=== PATIENT | female | born 1995 | race Caucasian/White ===

== ENCOUNTER → 2017-12-07 | Outpatient (CLI) | payer OTHER ==
[~2017-12-07] MED LIST: IBUP800 PO; Micronor; OXYACE5T PO; Verotin-Gr Cap1 EACH PO
[2017-12-07 18:17] LABS: BASOPHILS ABSOLUTE AUTO 0.04 K/mm3 (0.00-0.23); BASOPHILS PERCENT AUTO 0 % (0-2); EOSINOPHILS PERCENT AUTO 3 % (0-6); Hematocrit 40.9 % (33.0-51.0); Hemoglobin 12.4 g/dL (11.5-16.0); IMMATURE GRAN ABSOLUTE AUTO 0.02 K/mm3 (0.00-0.10); IMMATURE GRAN PERCENT AUTO 0 % (0-1); LYMPHOCYTES ABSOLUTE AUTO 3.02 K/mm3 (0.84-5.20); LYMPHOCYTES PERCENT AUTO 27 % (21-46); MONOCYTES ABSOLUTE AUTO 0.55 K/mm3 (0.16-1.47); MONOCYTES PERCENT AUTO 5 % (4-13); Mean Corpuscular HGB 25.2 pg (26.0-34.0); Mean Corpuscular HGB Conc 30.3 g/dL (31.5-36.5); Mean Corpuscular Volume 83 fL (80-100); Mean Platelet Volume 11.1 fL (9.1-12.4); NEUTROPHILS ABSOLUTE AUTO 7.16 K/mm3 (1.96-9.15); NEUTROPHILS PERCENT AUTO 65 % (41-73); Platelet Count 367 K/mm3 (150-400); RDW Coefficient Variation 15.3 % (11.7-14.2); RDW Standard Deviation 45.8 fL (35.1-46.3); Red Blood Cell Count 4.92 M/mm3 (3.80-5.20); White Blood Cell Count 11.09 K/mm3 (4.00-11.30)
[2017-12-07 19:11] LABS: Alanine Aminotransfer (ALT/SGP 20 U/L (12-78); Albumin, Blood 3.2 g/dL (3.4-5.0); Albumin/Globulin Ratio 0.8 (0.8-1.8); Alk Phos 79 U/L (50-136); Anion Gap 10 mmol/L (6-16); Aspartate Aminotrans (AST/SGOT 14 U/L (12-37); Bilirubin, Total 0.2 mg/dL (0.1-1.0); Blood Urea Nitrogen 13 mg/dL (8-24); CO2, Blood 22 mmol/L (21-32); Calcium, Blood 8.1 mg/dL (8.5-10.1); Chloride, Blood 109 mmol/L (98-108); Creatinine, Blood 0.81 mg/dL (0.40-1.00); Glomerular Filtration Rate >60 (60-); Glucose, Blood 89 mg/dL (70-99); Potassium, Blood 4.1 mmol/L (3.5-5.5); Sodium, Blood 141 mmol/L (136-145); Total Protein, Blood 7.2 g/dL (6.4-8.2)
== END | disposition home or self-care (01) ==
LOC: LAB 10:05
PROVIDERS: Nurse Practitioner Family
DX: R53.83 Other fatigue (principal); E55.9 Vitamin D deficiency, unspecified; Z86.2 Personal history of diseases of the blood and blood-forming organs and certain disorders involving the immune mechanism
CPT/HCPCS: 80053; 82306; 84443; 85025

== ENCOUNTER → 2018-10-12 | Outpatient (CLI) | payer OTHER | END | disposition home or self-care (01) | LOC: LAB 12:42 → LAB SHORT 12:42 | PROVIDERS: Obstetrics & Gynecology | DX: Z12.4 Encounter for screening for malignant neoplasm of cervix (principal) | CPT/HCPCS: G0123 ==

== ENCOUNTER 2019-03-30 09:29 | Emergency (ER) | payer OTHER ==
[~2019-03-30] VITALS: Ht 157.5 cm; Wt 99.8 kg
[2019-03-30] MEDS ORDERED: PROC5 PO (11:16)
[2019-03-30] MEDS ORDERED: Esgic Tablet1 EACH PO (11:16)
== END 2019-03-30 11:35 | disposition home or self-care (01) ==
LOC: ER 09:29
DX: R51 Headache (principal); Z87.891 Personal history of nicotine dependence
CPT/HCPCS: 36415; 96361; 96374; 99283-25; J0780; J1100; J1200; J1885; J7120

== ENCOUNTER 2019-06-28 23:30 | Emergency (ER) | payer OTHER ==
[~2019-06-28] VITALS: Ht 157.5 cm; Wt 95.2 kg
[~2019-06-28 23:30] MED LIST changes: +Esgic Tablet1 EACH PO; +PROC5 PO
== END 2019-06-29 02:20 | disposition home or self-care (01) ==
LOC: ER 23:30
DX: R07.89 Other chest pain (principal); Z87.891 Personal history of nicotine dependence
CPT/HCPCS: 93005; 93010; 96372; 99284-25; J1885

== ENCOUNTER 2019-09-03 07:14 | Emergency (ER) | payer OTHER ==
[~2019-09-03] VITALS: Ht 157.5 cm; Wt 95.2 kg
[2019-09-03 07:47] LABS: Source, Urine Clean Catch
[2019-09-03 07:57] LABS: Appearance, Urine Clear (Clear); Bilirubin, Urine Neg (Neg); Blood, Urine Neg (Neg); Color, Urine Yellow (P-Yellow); Glucose Qualitative, Urine Neg (Neg); Ketones, Urine Neg (Neg); Leukocyte Esterase, Urine Neg (Neg); Nitrite, Urine Neg (Neg); Protein, Urine Neg (Neg); Specific Gravity, Urine 1.015 (1.003-1.022); Urobilinogen, Urine NORM (Normal)
[2019-09-03 08:00] LABS: BASOPHILS ABSOLUTE AUTO 0.01 K/mm3 (0.00-0.23); BASOPHILS PERCENT AUTO 0 % (0-2); EOSINOPHILS ABSOLUTE AUTO 0.23 K/mm3 (0.00-0.68); EOSINOPHILS PERCENT AUTO 2 % (0-6); Hematocrit 43.8 % (33.0-51.0); Hemoglobin 13.7 g/dL (11.5-16.0); IMMATURE GRAN ABSOLUTE AUTO 0.02 K/mm3 (0.00-0.10); IMMATURE GRAN PERCENT AUTO 0 % (0-1); LYMPHOCYTES ABSOLUTE AUTO 2.99 K/mm3 (0.84-5.20); LYMPHOCYTES PERCENT AUTO 31 % (21-46); MONOCYTES ABSOLUTE AUTO 0.53 K/mm3 (0.16-1.47); MONOCYTES PERCENT AUTO 6 % (4-13); Mean Corpuscular HGB 26.5 pg (26.0-34.0); Mean Corpuscular HGB Conc 31.3 g/dL (31.5-36.5); Mean Corpuscular Volume 85 fL (80-100); Mean Platelet Volume 10.3 fL (9.1-12.4); NEUTROPHILS ABSOLUTE AUTO 5.78 K/mm3 (1.96-9.15); NEUTROPHILS PERCENT AUTO 61 % (41-73); Platelet Count 332 K/mm3 (150-400); RDW Coefficient Variation 15.4 % (11.7-14.2); RDW Standard Deviation 47.2 fL (35.1-46.3); Red Blood Cell Count 5.17 M/mm3 (3.80-5.20); White Blood Cell Count 9.56 K/mm3 (4.00-11.30)
[2019-09-03 08:13] LABS: Alanine Aminotransfer (ALT/SGP 20 U/L (12-78); Albumin, Blood 3.4 g/dL (3.4-5.0); Albumin/Globulin Ratio 0.9 (0.8-1.8); Alk Phos 99 U/L (50-136); Anion Gap 7 mmol/L (6-16); Aspartate Aminotrans (AST/SGOT 8 U/L (12-37); Bilirubin, Total 0.3 mg/dL (0.1-1.0); Blood Urea Nitrogen 11 mg/dL (8-24); Bun/Creatinine Ratio 14.8 (12.0-20.0); CO2, Blood 26 mmol/L (21-32); Calcium, Blood 8.9 mg/dL (8.5-10.1); Chloride, Blood 107 mmol/L (98-108); Creatinine, Blood 0.74 mg/dL (0.40-1.00); Globulin, Blood 3.9 g/dL (2.2-4.0); Glomerular Filtration Rate >60 (60-); Glucose, Blood 95 mg/dL (70-99); Potassium, Blood 3.7 mmol/L (3.5-5.5); Sodium, Blood 140 mmol/L (136-145); Total Protein, Blood 7.3 g/dL (6.4-8.2)
[2019-09-03] MEDS ORDERED: Prilosec Otc20 MG PO (09:45)
[2019-09-03] MEDS ORDERED: ONDA4ODT MM (09:45)
== END 2019-09-03 10:11 | disposition home or self-care (01) ==
LOC: ER 07:14
PROVIDERS: Emergency Medicine
DX: K44.9 Diaphragmatic hernia without obstruction or gangrene (principal); Z87.891 Personal history of nicotine dependence
CPT/HCPCS: 36415; 74176; 80053; 81003; 81025; 83690; 85025; 96361; 96374; 99284-25; J2405; J7030

== ENCOUNTER → 2020-04-15 | Outpatient (CLI) | payer OTHER ==
[~2020-04-15] MED LIST changes: +ONDA4ODT MM; +Prilosec Otc20 MG PO
[2020-04-17 08:09] LABS: HBSAG SCREEN Negative (Negative); HIV SCREEN 4TH GENERATION WRFX Non Reactive (Non Reactive)
[2020-04-17 09:09] LABS: HCV ANTIBODY <0.1 (0.0-0.9)
== END | disposition home or self-care (01) ==
LOC: LAB SHORT 12:58 → LAB EV 12:58
PROVIDERS: General Practice
DX: Z20.9 Contact with and (suspected) exposure to unspecified communicable disease (principal)
CPT/HCPCS: 84460; 86317; 86803; 87340; 87389

== ENCOUNTER 2020-08-19 21:38 | Emergency (ER) | payer OTHER ==
[~2020-08-19] VITALS: Ht 157.5 cm; Wt 96.2 kg
[2020-08-19 22:25] LABS: Source, Urine Clean Catch
[2020-08-19 22:30] LABS: Bilirubin, Urine Neg (Neg); Blood, Urine Neg (Neg); Glucose Qualitative, Urine Neg (Neg); Ketones, Urine 1+ (Neg); Leukocyte Esterase, Urine 2+ (Neg); Nitrite, Urine Neg (Neg); Protein, Urine Neg (Neg); Urobilinogen, Urine 1+ (Normal); pH, Urine 6.5 (5.0-8.0)
[2020-08-19 22:48] LABS: Appearance, Urine Hazy (Clear); Color, Urine Yellow (P-Yellow)
[2020-08-19 22:49] LABS: Amorphous Mod (0-Heavy); Bacteria Mod /hpf; Calcium Oxalate Crystals Few /hpf; Red Blood Cells, Urine Not Seen /hpf (0-2); Squamous Epithelial Cells Few /hpf (Few)
[2020-08-20 00:17] LABS: BASOPHILS ABSOLUTE AUTO 0.01 K/mm3 (0.00-0.23); BASOPHILS PERCENT AUTO 0 % (0-2); EOSINOPHILS ABSOLUTE AUTO 0.13 K/mm3 (0.00-0.68); EOSINOPHILS PERCENT AUTO 2 % (0-6); Hematocrit 37.6 % (33.0-51.0); Hemoglobin 12.1 g/dL (11.5-16.0); IMMATURE GRAN ABSOLUTE AUTO 0.02 K/mm3 (0.00-0.10); IMMATURE GRAN PERCENT AUTO 0 % (0-1); LYMPHOCYTES ABSOLUTE AUTO 2.06 K/mm3 (0.84-5.20); LYMPHOCYTES PERCENT AUTO 25 % (21-46); MONOCYTES ABSOLUTE AUTO 0.49 K/mm3 (0.16-1.47); MONOCYTES PERCENT AUTO 6 % (4-13); Mean Corpuscular HGB 28.3 pg (26.0-34.0); Mean Corpuscular HGB Conc 32.2 g/dL (31.5-36.5); Mean Corpuscular Volume 88 fL (80-100); Mean Platelet Volume 9.6 fL (9.1-12.4); NEUTROPHILS ABSOLUTE AUTO 5.67 K/mm3 (1.96-9.15); NEUTROPHILS PERCENT AUTO 68 % (41-73); Platelet Count 263 K/mm3 (150-400); RDW Coefficient Variation 13.2 % (11.7-14.2); RDW Standard Deviation 42.4 fL (35.1-46.3); Red Blood Cell Count 4.28 M/mm3 (3.80-5.20); White Blood Cell Count 8.38 K/mm3 (4.00-11.30)
[2020-08-20 00:33] LABS: International Normalized Ratio 0.96; Prothrombin Time Results 10.3 Sec (9.7-11.5)
[2020-08-20 00:37] LABS: Alanine Aminotransfer (ALT/SGP 11 U/L (12-78); Albumin, Blood 2.8 g/dL (3.4-5.0); Albumin/Globulin Ratio 0.8 (0.8-1.8); Alk Phos 67 U/L (50-136); Anion Gap 5 mmol/L (6-16); Aspartate Aminotrans (AST/SGOT 5 U/L (12-37); Bilirubin, Total 0.2 mg/dL (0.1-1.0); Blood Urea Nitrogen 7 mg/dL (8-24); Bun/Creatinine Ratio 10.7 (12.0-20.0); CO2, Blood 26 mmol/L (21-32); Calcium, Blood 8.6 mg/dL (8.5-10.1); Chloride, Blood 110 mmol/L (98-108); Creatinine, Blood 0.66 mg/dL (0.40-1.00); Globulin, Blood 3.7 g/dL (2.2-4.0); Glomerular Filtration Rate >60 (60-); Glucose, Blood 88 mg/dL (70-99); Potassium, Blood 3.3 mmol/L (3.5-5.5); Sodium, Blood 141 mmol/L (136-145); Total Protein, Blood 6.5 g/dL (6.4-8.2)
[2020-08-20] MEDS ORDERED: Macrobid 100 M100 MG PO (00:48)
== END 2020-08-20 01:11 | disposition home or self-care (01) ==
LOC: ER 21:38
PROVIDERS: Emergency Medicine
DX: O23.42 Unspecified infection of urinary tract in pregnancy, second trimester (principal); O20.9 Hemorrhage in early pregnancy, unspecified; Z3A.14 14 weeks gestation of pregnancy; Z87.891 Personal history of nicotine dependence
CPT/HCPCS: 36415; 76801; 80053; 81001; 83735; 85025; 85610; 85730; 86850; 86900; 86901; 87086; 99284-25; A9270

== ENCOUNTER → 2020-10-30 | Outpatient (CLI) | payer OTHER ==
[~2020-10-30] MED LIST changes: +Macrobid 100 M100 MG PO
== END | disposition home or self-care (01) ==
LOC: LAB SHORT 11:00 → PLD 11:00
DX: L08.9 Local infection of the skin and subcutaneous tissue, unspecified (principal)
CPT/HCPCS: 87070; 87077; 87147; 87186; 87205

== ENCOUNTER 2021-02-11 15:57 | Inpatient (IN) | payer OTHER ==
[~2021-02-11] VITALS: Ht 157.5 cm; Wt 95.0 kg
[2021-02-11 16:51] LABS: BASOPHILS ABSOLUTE AUTO 0.02 K/mm3 (0.00-0.23); BASOPHILS PERCENT AUTO 0 % (0-2); EOSINOPHILS ABSOLUTE AUTO 0.11 K/mm3 (0.00-0.68); EOSINOPHILS PERCENT AUTO 1 % (0-6); Hematocrit 37.5 % (33.0-51.0); Hemoglobin 12.5 g/dL (11.5-16.0); IMMATURE GRAN PERCENT AUTO 1 % (0-1); LYMPHOCYTES ABSOLUTE AUTO 3.38 K/mm3 (0.84-5.20); LYMPHOCYTES PERCENT AUTO 21 % (21-46); MONOCYTES ABSOLUTE AUTO 0.76 K/mm3 (0.16-1.47); MONOCYTES PERCENT AUTO 5 % (4-13); Mean Corpuscular HGB 27.6 pg (26.0-34.0); Mean Corpuscular HGB Conc 33.3 g/dL (31.5-36.5); Mean Corpuscular Volume 83 fL (80-100); NEUTROPHILS ABSOLUTE AUTO 11.88 K/mm3 (1.96-9.15); NEUTROPHILS PERCENT AUTO 73 % (41-73); Platelet Count 460 K/mm3 (150-400); RDW Standard Deviation 38.5 fL (35.1-46.3); Red Blood Cell Count 4.53 M/mm3 (3.80-5.20); White Blood Cell Count 16.25 K/mm3 (4.00-11.30)
--- NOTE | 2021-02-12 07:15 | NUR ---
REPORT FROM SHIRIN BANKS AND SHIRIN JACKSON. ASSUMING CARE OF PATIENT. SHE IS RESTING IN BED. FEELS WHEN SHE IS BAY, BUT DENIES PAIN WITH THEM. ENCOURAGED PT TO EAT BREAKFAST BEFORE STARTING PITOCIN. SHE CURRENTLY DOES NOT HAVE A SUPPORT PERSON AT BEDSIDE.
--- NOTE | 2021-02-12 07:24 | NUR ---
PER PATIENT REQUEST, PT GOING DOWN TO [place] TO GET FOOD BEFORE STARTING PITOCIN.
--- NOTE | 2021-02-12 07:35 | NUR ---
PT BACK TO HER ROOM
--- NOTE | 2021-02-13 00:58 | NUR ---
DARWINAR TO Cristobal PILLAI RN
--- NOTE | 2021-02-13 02:41 | NUR ---
ATTEMPTED TO GET PT OOB TO SHOWER. PT ABLE TO STAND AT BEDSIDE, BUT HAD VERY WEAK LEGS BILAT AND UNABLE TO AMBULATE. PT BACK TO BED AND WILL ATTEMPT AGAIN WHEN PT GAINS MORE SENSATION.
[2021-02-13 09:37] LABS: Hematocrit 31.9 % (33.0-51.0); Hemoglobin 10.5 g/dL (11.5-16.0); Mean Corpuscular HGB 27.4 pg (26.0-34.0); Mean Corpuscular HGB Conc 32.9 g/dL (31.5-36.5); Mean Corpuscular Volume 83 fL (80-100); Mean Platelet Volume 9.8 fL (9.1-12.4); Platelet Count 309 K/mm3 (150-400); RDW Standard Deviation 39.1 fL (35.1-46.3); Red Blood Cell Count 3.83 M/mm3 (3.80-5.20); White Blood Cell Count 24.68 K/mm3 (4.00-11.30)
[2021-02-13] MEDS ORDERED: IBUP800 PO (18:03)
--- NOTE | 2021-02-13 19:00 | NUR ---
No acute changes t/o shift. Pt denies additional needs beyond [place].Pt will be d/c'd to boarder status by CRISTIANO CARPIO.
--- NOTE | 2021-02-13 19:47 | NUR ---
DISCHARGE PER DAY RN, PT READY TO BE DISCHARGED TO BOARDER STATUS AFTER RECEIVING TDAP VACCINE. RN VERBALIZED PT ALREADY SIGNED DISCHARGE PAPERS. IV OUT. PT AGREES TO BOARDER STATUS.
== END 2021-02-13 19:54 | disposition home or self-care (01) | DRG 807 ==
LOC: OBS 15:57 → BC 16:09
PROVIDERS: ADMIT Advanced Practice Midwife
PROC: 3E0DXGC Introduction of Other Therapeutic Substance into Mouth and Pharynx, External Approach (ICD-10-PCS; 2021-02-11)
PROC: 10E0XZZ Delivery of Products of Conception, External Approach (ICD-10-PCS; principal; 2021-02-12)
PROC: 10H07YZ Insertion of Other Device into Products of Conception, Via Natural or Artificial Opening (ICD-10-PCS; 2021-02-12)
PROC: 10907ZC Drainage of Amniotic Fluid, Therapeutic from Products of Conception, Via Natural or Artificial Opening (ICD-10-PCS; 2021-02-12)
PROC: 3E033VJ Introduction of Other Hormone into Peripheral Vein, Percutaneous Approach (ICD-10-PCS; 2021-02-12)
PROC: 3E0R3BZ Introduction of Anesthetic Agent into Spinal Canal, Percutaneous Approach (ICD-10-PCS; 2021-02-12)
PROC: 00HU33Z Insertion of Infusion Device into Spinal Canal, Percutaneous Approach (ICD-10-PCS; 2021-02-12)
DX: O36.5930 Maternal care for other known or suspected poor fetal growth, third trimester, not applicable or unspecified (principal); Z37.0 Single live birth; O76 Abnormality in fetal heart rate and rhythm complicating labor and delivery; O77.0 Labor and delivery complicated by meconium in amniotic fluid; O69.1XX0 Labor and delivery complicated by cord around neck, with compression, not applicable or unspecified; O99.824 Streptococcus B carrier state complicating childbirth; Z3A.39 39 weeks gestation of pregnancy; Z20.822 Contact with and (suspected) exposure to COVID-19; Z91.040 Latex allergy status; Z88.8 Allergy status to other drugs, medicaments and biological substances
CPT/HCPCS: 36415; 51701; 51702; 85025; 85027; 86850; 86900; 86901; 90471; A9270; J0290; J1200; J1885; J2001; J2210; J2405; J2590; J3010; J7120; U0004

== ENCOUNTER → 2021-07-03 | Outpatient (CLI) | payer OTHER ==
[2021-07-03 11:12] LABS: BASOPHILS ABSOLUTE AUTO 0.01 K/mm3 (0.00-0.23); BASOPHILS PERCENT AUTO 0 % (0-2); EOSINOPHILS ABSOLUTE AUTO 0.08 K/mm3 (0.00-0.68); EOSINOPHILS PERCENT AUTO 1 % (0-6); Hematocrit 39.7 % (33.0-51.0); Hemoglobin 13.2 g/dL (11.5-16.0); IMMATURE GRAN ABSOLUTE AUTO 0.01 K/mm3 (0.00-0.10); IMMATURE GRAN PERCENT AUTO 0 % (0-1); LYMPHOCYTES ABSOLUTE AUTO 1.88 K/mm3 (0.84-5.20); LYMPHOCYTES PERCENT AUTO 27 % (21-46); MONOCYTES ABSOLUTE AUTO 0.38 K/mm3 (0.16-1.47); MONOCYTES PERCENT AUTO 6 % (4-13); Mean Corpuscular HGB 28.1 pg (26.0-34.0); Mean Corpuscular HGB Conc 33.2 g/dL (31.5-36.5); Mean Corpuscular Volume 85 fL (80-100); Mean Platelet Volume 9.5 fL (9.1-12.4); NEUTROPHILS ABSOLUTE AUTO 4.51 K/mm3 (1.96-9.15); NEUTROPHILS PERCENT AUTO 66 % (41-73); Platelet Count 353 K/mm3 (150-400); RDW Coefficient Variation 14.6 % (11.7-14.2); RDW Standard Deviation 44.7 fL (35.1-46.3); Red Blood Cell Count 4.69 M/mm3 (3.80-5.20); White Blood Cell Count 6.87 K/mm3 (4.00-11.30)
[2021-07-03 11:14] LABS: Alanine Aminotransfer (ALT/SGP 15 U/L (12-78); Albumin, Blood 3.9 g/dL (3.4-5.0); Albumin/Globulin Ratio 1.1 (0.8-1.8); Alk Phos 66 U/L (40-126); Anion Gap 11 mmol/L (6-16); Aspartate Aminotrans (AST/SGOT 6 U/L (12-37); Bilirubin, Total 0.5 mg/dL (0.1-1.0); Blood Urea Nitrogen 9 mg/dL (8-24); Bun/Creatinine Ratio 12.7 (12.0-20.0); CO2, Blood 24 mmol/L (21-32); Calcium, Blood 8.8 mg/dL (8.5-10.1); Chloride, Blood 105 mmol/L (98-108); Creatinine, Blood 0.71 mg/dL (0.40-1.00); Globulin, Blood 3.7 g/dL (2.2-4.0); Glomerular Filtration Rate >60 (60-); Glucose, Blood 86 mg/dL (70-99); Sodium, Blood 140 mmol/L (136-145); Total Protein, Blood 7.6 g/dL (6.4-8.2)
== END | disposition home or self-care (01) ==
LOC: LAB 11:00 → LAB SHORT 11:00
PROVIDERS: Physician Assistant
DX: R10.9 Unspecified abdominal pain (principal); R82.79 Other abnormal findings on microbiological examination of urine; Z33.1 Pregnant state, incidental
CPT/HCPCS: 80053; 84702; 85025; 87086

== ENCOUNTER 2022-02-07 04:58 | Inpatient (IN) | payer OTHER ==
[~2022-02-07] VITALS: Ht 157.5 cm; Wt 104.5 kg
[2022-02-07 07:13] LABS: BASOPHILS ABSOLUTE AUTO 0.05 K/mm3 (0.00-0.23); BASOPHILS PERCENT AUTO 0 % (0-2); EOSINOPHILS ABSOLUTE AUTO 0.03 K/mm3 (0.00-0.68); EOSINOPHILS PERCENT AUTO 0 % (0-6); Hematocrit 35.5 % (33.0-51.0); Hemoglobin 11.3 g/dL (11.5-16.0); IMMATURE GRAN ABSOLUTE AUTO 0.13 K/mm3 (0.00-0.10); IMMATURE GRAN PERCENT AUTO 1 % (0-1); LYMPHOCYTES PERCENT AUTO 11 % (21-46); MONOCYTES ABSOLUTE AUTO 0.63 K/mm3 (0.16-1.47); MONOCYTES PERCENT AUTO 3 % (4-13); Mean Corpuscular HGB 26.8 pg (26.0-34.0); Mean Corpuscular HGB Conc 31.8 g/dL (31.5-36.5); Mean Corpuscular Volume 84 fL (80-100); Mean Platelet Volume 9.7 fL (9.1-12.4); NEUTROPHILS ABSOLUTE AUTO 16.87 K/mm3 (1.96-9.15); NEUTROPHILS PERCENT AUTO 85 % (41-73); Platelet Count 309 K/mm3 (150-400); RDW Coefficient Variation 14.5 % (11.7-14.2); RDW Standard Deviation 43.8 fL (35.1-46.3); Red Blood Cell Count 4.22 M/mm3 (3.80-5.20); White Blood Cell Count 19.81 K/mm3 (4.00-11.30)
[2022-02-07 08:38] LABS: SARS-Cov-2 (COVID-19) PCR, MMC NEGATIVE (NEGATIVE)
--- NOTE | 2022-02-07 16:04 | NUR ---
PT WOULD LIKE ADDITIONAL PAIN MEDS AND SOMETHING FOR HEARTBURN, DR PEREZ AND JANNIE BOTH CALLED, WENT TO VOICE MAIL.
--- NOTE | 2022-02-07 17:17 | NUR ---
DR VALDERRAMA CALLED BACK, NEW ORDERS
[2022-02-08 05:49] LABS: BASOPHILS ABSOLUTE AUTO 0.04 K/mm3 (0.00-0.23); BASOPHILS PERCENT AUTO 0 % (0-2); EOSINOPHILS PERCENT AUTO 1 % (0-6); Hematocrit 32.1 % (33.0-51.0); Hemoglobin 10.3 g/dL (11.5-16.0); IMMATURE GRAN ABSOLUTE AUTO 0.09 K/mm3 (0.00-0.10); IMMATURE GRAN PERCENT AUTO 1 % (0-1); LYMPHOCYTES ABSOLUTE AUTO 4.47 K/mm3 (0.84-5.20); LYMPHOCYTES PERCENT AUTO 29 % (21-46); MONOCYTES ABSOLUTE AUTO 0.86 K/mm3 (0.16-1.47); MONOCYTES PERCENT AUTO 6 % (4-13); Mean Corpuscular HGB 26.9 pg (26.0-34.0); Mean Corpuscular HGB Conc 32.1 g/dL (31.5-36.5); Mean Corpuscular Volume 84 fL (80-100); Mean Platelet Volume 10.3 fL (9.1-12.4); NEUTROPHILS ABSOLUTE AUTO 10.02 K/mm3 (1.96-9.15); NEUTROPHILS PERCENT AUTO 64 % (41-73); Platelet Count 299 K/mm3 (150-400); RDW Coefficient Variation 14.6 % (11.7-14.2); RDW Standard Deviation 44.1 fL (35.1-46.3); Red Blood Cell Count 3.83 M/mm3 (3.80-5.20); White Blood Cell Count 15.58 K/mm3 (4.00-11.30)
[2022-02-08] MEDS ORDERED: ROXICODONE5 MG PO (09:35)
--- NOTE | 2022-02-08 10:25 | NUR ---
1025 nm home with family. pt denies any questions, encouraged to call, will return thursday for ppfu appt.
== END 2022-02-08 10:25 | disposition home or self-care (01) | DRG 807 ==
LOC: OBS 04:58 → BC 04:59 → OBS 06:11 → BC 06:20
PROVIDERS: Family Medicine; ADMIT Family Medicine
PROC: 10E0XZZ Delivery of Products of Conception, External Approach (ICD-10-PCS; principal; 2022-02-07)
PROC: 10907ZC Drainage of Amniotic Fluid, Therapeutic from Products of Conception, Via Natural or Artificial Opening (ICD-10-PCS; 2022-02-07)
DX: O70.0 First degree perineal laceration during delivery (principal); Z37.0 Single live birth; Z3A.39 39 weeks gestation of pregnancy; O69.81X0 Labor and delivery complicated by cord around neck, without compression, not applicable or unspecified; Z91.040 Latex allergy status; Z88.8 Allergy status to other drugs, medicaments and biological substances; Z20.822 Contact with and (suspected) exposure to COVID-19
CPT/HCPCS: 36415; 59025; 85025; 86850; 86900; 86901; A9270; J1885; J2001; J2590; J3010; J7120; U0004

== ENCOUNTER 2024-04-24 | Emergency (ER) | payer OTHER ==
[~2024-04-24] VITALS: Ht 157.5 cm; Wt 95.2 kg
[~2024-04-24] MED LIST changes: +ROXICODONE5 MG PO
[2024-04-24] MEDS ORDERED: HYDROcodone 5-APAP 325 TAB PO ONE (01:05)
[2024-04-24 02:20] VITALS: BP 138/70
== END 2024-04-24 02:22 | disposition home or self-care (01) ==
LOC: ER
DX: S93.402A Sprain of unspecified ligament of left ankle, initial encounter (principal); X50.1XXA Overexertion from prolonged static or awkward postures, initial encounter; Z87.891 Personal history of nicotine dependence; Z79.1 Long term (current) use of non-steroidal anti-inflammatories (NSAID); Z91.040 Latex allergy status; Z88.8 Allergy status to other drugs, medicaments and biological substances
CPT/HCPCS: 73610; 99283-25; A9270

== ENCOUNTER 2024-04-25 22:14 | Emergency (ER) | payer OTHER ==
[~2024-04-25] VITALS: Ht 157.5 cm; Wt 95.2 kg
[2024-04-25 22:49] VITALS: BP 132/77
[2024-04-25] MEDS ORDERED: Ketorolac Tromethamine 30mg Vial IM ONE (22:55)
== END 2024-04-25 23:14 | disposition home or self-care (01) ==
LOC: ER 22:14
DX: S93.402A Sprain of unspecified ligament of left ankle, initial encounter (principal); X58.XXXA Exposure to other specified factors, initial encounter; Z88.8 Allergy status to other drugs, medicaments and biological substances; Z91.040 Latex allergy status; Z87.891 Personal history of nicotine dependence
CPT/HCPCS: J1885